=== PATIENT | male | born 1945 | race Caucasian/White ===

== ENCOUNTER 2020-02-10 22:10 | Emergency (ER) | payer MEDICARE, SELFPAY ==
[2020-02-10 22:14] VITALS: BP 188/70; PULSE 62; RESP 18; TEMP 36.2; O2SAT 95; BMI 28.7
--- NOTE | 2020-02-10 22:47 | ED_ITS ---
HPI - Ear Problem General Chief complaint: Ear Problems Stated complaint: foreign object in ear Time Seen by Provider: 02/10/20 22:46 Source: patient Mode of arrival: ambulatory Limitations: no limitations History of Present Illness HPI Narrative: This is a 74-year-old male who presents after having attempted to clean his left ear earwax and the Q-tip broke off inside. Related Data Allergies Allergy/AdvReac Type Severity Reaction Status Date / Time No Known Allergies Allergy Verified 02/10/20 23:10 [No Known Allergies*] Review of Systems Review of Systems: Pertinent positives and negatives as stated in HPI and 10 point review of systems is otherwise negative PMFSH Past Medical History Source: nursing notes reviewed Medical History High cholesterol HTN (hypertension) Myocardial infarction Surgical History History of heart artery stent Social History Social History Advance Directives: No Advance Directives Information Provided: No Physical Exam Vital Signs: Vital Signs: Last Vital Signs Temp 97.1 F 02/10/20 22:14 Pulse 62 02/10/20 22:14 Resp 18 02/10/20 22:14 BP 188/70 H 02/10/20 22:14 Pulse Ox 95 02/10/20 22:14 Body Mass Index 28.7 VITAL SIGNS: Reviewed. GENERAL: Well developed, well nourished, in no acute distress. HEAD: Normocephalic/atraumatic, EYES: PERRLA, EOMI intact without pain, no nystagmus/pallor/icterus noted EARS:Right Ext canals without abnormality, left external canal with obvious remaining portion of the cotton swab lodged within, TMs non-bulging and non- erythematous NOSE: Nares patent bilateral OROPHARYNX: no oral lesions noted, posterior pharynx clear and non-erythematous without noted tonsillar enlargement/erythema/exudates NECK: Supple, no adenopathy LUNGS: Normal breath sounds. No adventitious sounds or accessory muscle use. SpO2<95> CARDIOVASCULAR: Regular rate and rhythm without noted murmurs, no JVD or lower extremity edema. ABDOMEN: Soft, non-tender, non-distended with bowel sounds. No rigidity. No guarding. No palpable masses or hernias noted MUSCULOSKELETAL: No tenderness, deformities, or effusions noted on gross inspection. EXTREMITIES: No cyanosis, clubbing or edema. SKIN: Inspection of the skin reveals no rashes, ulcerations, jaundice, pallor, or petechiae. NEUROLOGIC: Alert and oriented x 4. Strength and sensation to light touch were grossly intact x 4. Course Course Course Narrative: this is a 74-year-old male with history of clinical presentation consistent with foreign body in the left ear which was easily visualized and removed with forceps. Re-evaluation of the ear demonstrates a clear external canal without bleeding and TM is well visualized without evidence compromise. Patient was then discharged in stable condition. Procedures Foreign Body Removal Site: left and ear Description of foreign body: other ( Q 2) Sedation/Analgesia: none Technique: manual removal Confirmed by:: direct visualization Complications: none Post-procedure exam: awake, alert Neurovascular: no change from pre-procedure Discharge Plan Discharge Clinical Impression: Foreign body Patient Disposition: Home, Self-Care Instructions: Ear Foreign Body (ED) Additional Instructions: Resume all home medications as prescribed. Avoid using Q-tips in the future. The patient and/or family acknowledge understanding of results (as applicable), diagnosis, treatment plan, need for follow up, and symptoms that should prompt a return to the emergency room. Referrals: Physician,Unknown [Physician] - 2 days ( re-evaluation after foreign body removal from left ear)
== END 2020-02-10 23:35 | disposition home or self-care (01) ==
LOC: HO.ED 23:23
PROVIDERS: Emergency Provider Student in an Organized Health Care Education/Training Program; PCP Internal Medicine
DX: T16.2XXA Foreign body in left ear, initial encounter (principal); H92.02 Otalgia, left ear; I10 Essential (primary) hypertension; X58.XXXA Exposure to other specified factors, initial encounter; Y93.9 Activity, unspecified; Y92.009 Unspecified place in unspecified non-institutional (private) residence as the place of occurrence of the external cause; Y99.9 Unspecified external cause status; Z79.899 Other long term (current) drug therapy
CPT/HCPCS: 69200; 99283

== ENCOUNTER 2020-03-18 09:02 | Emergency (ER) | payer MEDICARE, SELFPAY ==
[2020-03-18 09:13] VITALS: BP 184/72; PULSE 71; RESP 16; TEMP 36.6; O2SAT 97; BMI 28.7
--- NOTE | 2020-03-18 09:23 | ED_ITS ---
HPI - Skin/Abscess/Foreign Bdy General Chief complaint: Skin/Abscess/Foreign Body Stated complaint: FB ear Time Seen by Provider: 03/18/20 09:15 Source: patient Mode of arrival: ambulatory Limitations: no limitations History of Present Illness HPI narrative: A 70-year-old male presenting to the ED with complaints of part of his hearing aid stuck in his left ear canal. Denies any other complaints or concerns at this time. Related Data Allergies Allergy/AdvReac Type Severity Reaction Status Date / Time No Known Allergies Allergy Verified 02/10/20 23:10 [No Known Allergies*] Review of Systems Review of Systems: ENT/Mouth : No Hearing loss, No Ear Pain Yes all other systems are reviewed and are negative [facility] Past Medical History Attestation statement: The following information was validated with the patient. Medical History High cholesterol HTN (hypertension) Myocardial infarction Pulmonary embolism Surgical History H/O shoulder surgery History of heart artery stent Social History Social History Advance Directives: No Advance Directives Information Provided: No Physical Exam Vital Signs: Vital Signs: Last Vital Signs Temp 97.8 F 03/18/20 09:13 Pulse 71 03/18/20 09:13 Resp 16 03/18/20 09:13 BP 184/72 H 03/18/20 09:13 Pulse Ox 97 03/18/20 09:13 Body Mass Index 28.7 vital signs have been reviewed as normal and appeared to be correct. Blood pressure normal. Heart rate normal. Respiration rate normal. Temperature normal. Oxygen saturation normal. Appearance: Alert. Oriented X3. No acute distress. Head: Normal external exam. Normocephalic. Atraumatic. Eyes: PERRLA. EOMI. Conjunctiva and sclera normal. Eyelids normal. ENT: Right external ear canal within normal limits. Left external ear canal foreign body noted. One foreign body removed the rest of the ear canal within normal limits. TM's Normal. Pharynx normal. Uvula midline. Moist mucous membranes. Neck: Normal inspection. Neck supple. FROM. No adenopathy. No meningeal signs. CVS: Normal heart rate and rhythm. Heart sound normal. No murmurs noted. Pulses normal throughout. Respiratory: No respiratory distress. Painless inspiration. Breath sounds normal. No wheezes/rales/rhonchi noted. Chest nontender. No accessory muscle usage noted or decreased air movement noted. Back: Full range of motion noted. Skin: Skin warm and dry. Normal skin color. Normal skin turgor. No rashes/lesions/lacerations noted. Extremities: Extremities exhibit normal range of motion. Extremities nontender. Neuro: Oriented X 3. No motor deficit. No sensory deficit. Reflexes normal. Course Course Course Narrative: Patient now status post foreign body removal to left ear no complications. Patient tolerated procedure well. Will DC home with instructions to follow up with primary care provider and to return if any new or worsening symptoms. Patient understands agrees the plan. Procedures FB Removal Ear Location: ear canal (L) Foreign Body Suspected: other (Piece of hearing aid) TM intact pre-procedure: unable to visualize Foreign Body Removed: yes Foreign Body Removal Technique: forceps Tympanic Membrane Intact Post Procedure: Yes Patient Tolerated Procedure: well Complications: none MDM - Skin/Abscess/Foreign Bdy Medical Records Attestation: I reviewed the patient's medical records. Discharge Plan Discharge Clinical Impression: Foreign body in left ear lobe Patient Disposition: Home, Self-Care Instructions: Ear Foreign Body (ED) Referrals: Jabier Jaffe MD [Primary Care Provider] - 2 days Print Language: Latvian
== END 2020-03-18 09:40 | disposition home or self-care (01) ==
LOC: HO.ED 09:27
PROVIDERS: Emergency Provider Emergency Medicine; PCP Internal Medicine
DX: T16.2XXA Foreign body in left ear, initial encounter (principal); H92.02 Otalgia, left ear; X58.XXXA Exposure to other specified factors, initial encounter; Y93.9 Activity, unspecified; Y92.9 Unspecified place or not applicable; Y99.9 Unspecified external cause status
CPT/HCPCS: 69200; 99283

== ENCOUNTER 2020-04-01 06:15 | Outpatient (REF) | payer MEDICARE, SELFPAY | END 2020-04-01 06:16 | disposition home or self-care (01) | LOC: HO.LAB 06:15 | PROVIDERS: PCP Internal Medicine; Visit Provider Internal Medicine | DX: Z20.822 Contact with and (suspected) exposure to COVID-19 (principal) | CPT/HCPCS: 36415; C9803; U0003 ==

== ENCOUNTER 2022-02-15 07:06 | Emergency (ER) | payer MEDICARE, SELFPAY ==
[2022-02-15 07:47] VITALS: BP 188/95; PULSE 77; RESP 18; TEMP 36.4; O2SAT 94; BMI 29.4
[2022-02-15 08:11] VITALS: BP 156/74; PULSE 66; RESP 18; TEMP 36.4; O2SAT 93
--- NOTE | 2022-02-15 08:21 | ED.GENADULT ---
HPI - General Adult General Chief complaint: General Medical Stated complaint: Swollen lip Time Seen by Provider: 02/15/22 08:02 Source: patient Mode of arrival: ambulatory Limitations: no limitations History of Present Illness HPI narrative: Patient is a 76 year old assigned male at with a history of HTN presenting to the emergency department today with bottom lip swelling. Patient states that he woke up this morning and had lower lip swelling. Patient states that he does take lisinopril for HTN. Patient denies any dizziness, lightheadedness, abdominal pain, nausea, vomiting, fever, chills, blurry vision, double vision, loss of vision, chest pain, difficulty breathing, shortness of breath, back pain, night sweats, pain with urination, increased urinary frequency, increased urinary urgency, blood in his urine or stool, syncope or a near syncopal episode, recent trauma or falls, bowel incontinence, bladder incontinence, bowel retention, bladder retention, or any other complaints at this time. Onset (ago): hour(s) Location: face and mouth Severity: mild Severity scale (1-10): 5 Pain Consistency: constant Relieving factors: none Exacerbating factors: none Associated symptoms: denies other symptoms Treatments prior to arrival: none Related Data Previous Rx's Medication Instructions Recorded prednisone 20 mg tablet 20 mg PO DAILY 7 days #7 tabs 02/15/22 Allergies Allergy/AdvReac Type Severity Reaction Status Date / Time No Known Allergies Allergy Verified 02/10/20 23:10 [No Known Allergies*] Review of Systems Constitutional: Constitutional: Reports no additional constitutional complaints, Denies chills, Denies fever(s) and Denies night sweats Eyes: Eyes: Reports no additional eye complaints, Denies blurry vision, Denies change in vision, Denies diplopia, Denies eye discharge, Denies loss of vision and Denies eye pain ENT: Denies dizziness Comments: lower lip swelling Cardiovascular: Cardiovascular: Reports no additional cardiovascular complaints, Denies chest pain, Denies lightheadedness, Denies Loss of Consciousness and Denies dyspnea Respiratory: Respiratory: Reports no additional respiratory complaints and Denies dyspnea Gastrointestinal: Gastrointestinal: Reports no additional gastrointestinal complaints, Denies abdominal pain, Denies melena, Denies hematochezia, Denies change in bowel habits and Denies change in stool character Genitourinary: Genitourinary: Reports no additional male genitourinary complaints, Denies hematuria, Denies oliguria, Denies difficulty urinating, Denies dysuria, Denies urinary frequency, Denies urinary hesitancy, Denies urinary incontinence and Denies urinary urgency Musculoskeletal: Musculoskeletal: Reports no additional musculoskeletal complaints, Denies numbness and Denies tingling Neurologic: Denies dizziness, Denies loss of vision, Denies numbness and Denies tingling Psychiatric: Psychiatric: Reports no additional psychiatric complaints Endocrine: Endocrine: Reports no additional endocrine complaints Hematologic/Lymphatic: Hematologic/Lymphatic: Reports no additional hematologic/lymphatic complaints Allergic/Immunologic: Allergic/Immunologic: Reports no additional allergic/immunologic complaints [facility] Past Medical History Attestation statement: The following information was validated with the patient. Source: old records reviewed Medical History High cholesterol HTN (hypertension) Myocardial infarction Pulmonary embolism Surgical History H/O shoulder surgery History of heart artery stent Social History Social History Smoked in Last 30 Days: No Use of substances other than those prescribed or required for medical reasons: No Advance Directives: Yes Advance Directives Information Provided: Yes Advance Directives on File: No Physical Exam ED Vital Signs: Vital Signs - 24 hr 02/15/22 07:47 02/15/22 08:11 02/15/22 10:59 Temperature 97.5 F 97.5 F 98.2 F Pulse Rate 77 66 62 Respiratory Rate 18 18 18 Blood Pressure 188/95 H 156/74 H 184/78 H Pulse Oximetry 94 93 Oxygen Delivery Method Room Air Room Air 02/15/22 11:21 02/15/22 11:55 02/15/22 12:15 Temperature 98.3 F 98.3 F 98.2 F Pulse Rate 68 66 66 Respiratory Rate 19 21 H 28 H Blood Pressure 174/90 H 175/95 H 188/75 H Pulse Oximetry 94 Oxygen Delivery Method Room Air BMI result Body Mass Index 29.4 Const General: cooperative, no acute distress, alert and awake Nutritional Appearance: well nourished Orientation/consciousness: patient oriented x3 Limitations: no limitations HENMT Head: Yes normal to inspection and Yes atraumatic Ears: hearing grossly normal bilaterally and external ears normal General nose exam: Normal external nose present, no nasal discharge noted and no epistaxis Face and sinus: Yes normal facial exam, No abrasion and No laceration Mouth: Normal oral and palatal mucosa present, lip abnormal (lower lip swelling), no drooling and no muffled voice Eyes General: appearance normal, both eyes and all related structures Periorbital: periorbital findings normal Eyelids: Yes eyelids normal Conjunctivae: conjunctivae normal Pupils: Equal, round and reactive pupils present EOM: EOMs intact bilaterally Neck Neck: Yes normal visual inspection, Yes full ROM and Yes no lymphadenopathy Chest Chest palpation & inspection: normal inspection of the chest Resp Effort & Inspection: normal respiratory effort and able to speak in complete sentences GI Inspection: Yes normal to inspection Neuro General: patient oriented x3 and moves all extremities Cranial nerves: Yes Equal, round and reactive pupils present Cognition (Neuro): normal cognition Motor exam (neuro): 5/5 motor strength present throughout Sensory Exam: Normal double simultaneous stimulation for sensation Coordination: [id number] test normal Extrem General: Yes normal to inspection, Yes full ROM and Yes capillary refill normal Psych Appearance: grossly normal Mental Status: mental status grossly normal Affect: normal affect Attitude: cooperative Thought process: Normal thought process present Thought content: Normal thought content present Insight: Good insight present (Psych) Medications Administered Discontinued Medications Generic Name Dose Route Start Last Admin Trade Name Joeq PRN Reason Stop Dose Admin Diphenhydramine HCl 50 mg 02/15/22 08:19 02/15/22 08:55 Diphenhydramine Hcl 50 Mg/Ml Vial IVPUSH 02/15/22 08:20 50 mg ONCE ONE Administration Epinephrine 0.3 mg 02/15/22 08:19 02/15/22 08:51 Epinephrine 1 Mg/Ml Vial IM 02/15/22 08:20 0.3 mg STAT STA Administration Methylprednisolone Sodium Succinate 60 mg 02/15/22 08:19 02/15/22 08:52 Methylprednisolone Sod Succ 125 Mg/2 Ml Vial IVPUSH 02/15/22 08:20 60 mg ONCE ONE Administration Medical Decision Making Medical Decision Making MDM Narrative: Patient is a 76 year old assigned male at with a history of HTN presenting to the emergency department today with swelling of the lower lip. Patient's physical exam showed swelling to the lower lip but the patient's airway was intact, no drooling, no muffeled voice, patient was able to tolerate his own secretions. Patient's blood work was unremarkable. I explained my physical exam findings as well as all test results to the patient. I answered all questions asked by the patient. Patient received IV Benadryl, IV Solu-medrol, and IV fresh frozen plasma which he stated helped his symptoms significantly. I stressed the importance of the patient taking his medication as prescribed and to stop his lisinopril. I stressed the importance of the patient following up with his primary care provider. I stressed the importance of the patient returning to the emergency department immediately if his symptoms were to worsen or if he were to develop any dizziness, shortness of breath, difficulty breathing, chest pain, blurry vision, loss of vision, nausea, vomiting, abdominal pain, fever, chills, back pain, or any other complaints. Patient verbalized agreement and understanding with this treatment plan and discharge. Differential Diagnoses: Differential diagnosis (angioedema secondary to lisinopril use) Differential Diagnosis: The differential diagnosis associated with the patient?s presentation includes: Discussion of management with other physician/healthcare provider/other source (e.g., hospitalist, medical cost consultant, behavioral health): Discussion w/other physician/healthcare provider I discussed my management of this patient with my attending physician Dr. Ivy who agreed with my management and discharge of this patient. Critical Care Time Critical Care Time Critical Care Time: Yes Total Critical Care Time: 30 Attestation: I spent 30 minutes of Critical Care Time with this patient. This does not include time spent on separately reported billable procedures. Discharge Plan Discharge Clinical Impression: Angioedema of lips Patient Disposition: Home, Self-Care Additional Instructions: STOP TAKING THE LISINOPRIL. IF YOU HAVE ANY INCREASE IN SWELLING PLEASE RETURN TO THE ED IMMEDIATELY. Follow up with your primary care provider. Return to the emergency department immediately if your symptoms worsen or if you develop any dizziness, shortness of breath, difficulty breathing, chest pain, blurry vision, loss of vision, nausea, vomiting, abdominal pain, fever, chills, back pain, or any other complaints. Prescriptions: New prednisone 20 mg tablet 20 mg PO DAILY 7 Days Qty: 7 0RF Referrals: Jabier Jaffe MD [Primary Care Provider] - Print Language: Bermudian
[2022-02-15 08:44] LABS: MANUAL DIFF FLAG NO
[2022-02-15 08:48] LABS: Basophils Percent Auto 0.3 % (0-2); Eosinophils Percent Auto 0.1 % (0-4); Hematocrit 44.9 % (42.0-52.0); Hemoglobin 15.5 g/dl (14.0-18.0); Imm Gran Abs Auto 0.05 X10*3/uL (0.00-0.03); Imm Gran Pct Auto 0.7 % (0.0-0.4); Lymphocytes Percent Auto 14.2 % (20-40); Mean Corpuscular HGB Conc 34.5 g/dl (31.0-36.0); Mean Corpuscular Hemoglobin 32.1 pg (27.0-33.0); Mean Platelet Volume 9.9 fL (9.4-12.4); Monocytes Absolute Auto 0.4 X10*3/uL (0.1-1.2); Monocytes Percent Auto 6.1 % (2-11); Neutrophils Absolute Auto 5.4 x10*3/uL (2.0-8.3); Neutrophils Percent Auto 78.6 % (45-73); Platelet Count 230 X10*3/uL (160-400); Red Blood Count 4.83 X10*6/uL (4.60-5.80); Red Cell Distribution Width 14.1 % (11.0-16.0); White Blood Count 6.9 X10*3/uL (4.8-10.8)
[2022-02-15] MEDS: EPINEPHrine 1 MG/ML VIAL 0.3 MG IM (08:51)
[2022-02-15] MEDS: methylPREDNISolone Sod Succ 125 MG/2 ML VIAL 60 MG IVPUSH (08:52)
[2022-02-15] MEDS: diphenhydrAMINE HCL 50 MG/ML VIAL IVPUSH (08:55)
[2022-02-15 08:56] LABS: INTERNATIONAL NORM RATIO 1.1 (0.9-1.1); Prothrombin Time 13.2 SEC (10.0-13.1)
[2022-02-15 08:58] LABS: Partial Thromboplastin Time 27.2 SEC (26.0-36.4)
[2022-02-15 09:02] LABS: Alanine Aminotransferase 14 U/L (0-40); Albumin Level 3.3 g/dL (3.5-5.0); Alkaline Phosphatase 68 U/L (39-117); Anion Gap 12 (12-20); Aspartate Amino Transferase 12 U/L (5-37); Bilirubin Total 1.5 mg/dL (0.0-1.0); Blood Urea Nitrogen 15 mg/dL (9-16); Calcium 8.2 mg/dL (8.4-10.2); Carbon Dioxide 23 mmol/L (22-29); Chloride 108 mmol/L (96-108); Creatinine Clr Calc Pharmacy 95.9; Estimated Glomerular Filt Rate > 60; Glucose Random 114 mg/dL (60-115); Potassium 4.6 mmol/L (3.3-5.1); Sodium 138 mmol/L (135-145); Total Protein 6.1 g/dL (6.5-8.0)
[2022-02-15 10:59] VITALS: BP 184/78; PULSE 62; RESP 18; TEMP 36.8
[2022-02-15 11:21] VITALS: BP 174/90; PULSE 68; RESP 19; TEMP 36.8
[2022-02-15 11:55] VITALS: BP 175/95; PULSE 66; RESP 21; TEMP 36.8
[2022-02-15 12:15] VITALS: BP 188/75; PULSE 66; RESP 28; TEMP 36.8; O2SAT 94
== END 2022-02-15 13:06 | disposition home or self-care (01) ==
PROVIDERS: Physician Assistant Medical; Emergency Provider Emergency Medicine; PCP Internal Medicine
DX: K13.0 Diseases of lips (principal); I10 Essential (primary) hypertension; Z79.899 Other long term (current) drug therapy
CPT/HCPCS: 36415; 36430; 80053; 85025; 85610; 85730; 86850; 86900; 86901; 96372; 96374; 96375; 99284; 99285; J0171; J1200; J2930; P9017

== ENCOUNTER 2022-03-15 08:34 | Emergency (ER) | payer MEDICARE, SELFPAY ==
--- NOTE | ~2022-03-15 | CT_ITS ---
EXAMINATION: CT CHEST AND CT ABDOMEN PELVIS WITHOUT IV CONTRAST. CLINICAL INFORMATION: Fall, right rib pain. COMPARISON: Chest x-ray performed earlier today and CT chest 09/11/2014 TECHNIQUE: 5 mm thin axial and reformatted 3 mm thin sagittal and coronal images of chest, abdomen and pelvis were obtained without contrast. DLP [id number]. This CT examination was performed using dose optimization technique as appropriate, variously including the following: Automated exposure control Adjustment of MA and/or KV according to patient size(this includes techniques or standardized protocols for targeted exams where dose is matched to indication/reason for exam; extremities or head. Use of iterative reconstruction techniques. FINDINGS: Chest: LUNGS: The lungs are well-expanded and clear of acute pneumonic process. There are no pulmonary nodules, mass or consolidation. There is patchy airspace opacity in the dependent segments of both lung bases likely infiltrate and/or atelectasis. Pleura: There is no pleural effusion, thickening or pneumothorax. Mediastinum: The thyroid lobes are asymmetrical with the right slightly larger than left. Central trachea and the bronchi are widely patent. The heart size and great vessels are normal caliber. Small shotty pretracheal and paratracheal lymph nodes seen which appear benign in appearance. The measure 5 mm in the maximum dimension.. No pericardial effusion. Coronary artery: Moderate coronary artery calcifications are seen. Axilla: There are small shotty benign-appearing lymph nodes in the axilla. The chest wall is unremarkable. Osseous structures: Mild degenerative changes bilateral glenohumeral joint. No aggressive lytic or sclerotic process seen. Moderate spondylosis in mid and lower dorsal spine. Abdomen and pelvis: Liver, ducts and gallbladder: The liver is normal size, contour and density. No focal lesion or intrahepatic ductal dilatation seen. The gallbladder appears unremarkable. Spleen: Unremarkable. Pancreas: Unremarkable. Adrenal glands: Unremarkable. Kidneys and ureters: The left kidney slightly smaller measuring 8.4 to 6 cm in the right kidney measures 10.85 cm. There are no radiopaque renal calculi or hydronephrosis. There is mild bilateral perinephric stranding. The ureters are nondilated. Bladder: There is mild dilation of bladder. GI tract: There is diffuse scattered diverticula and stool throughout the colon without distention or diverticulitis. The small bowel loops are normal caliber. Appendix is normal caliber. Lymphovascular structures: The abdominal aorta is of normal caliber except for mild sclerosis. There is an infrarenal IVC filter at L2 vertebra. Of No abnormal size retroperitoneal lymph nodes seen. Abdominal wall: Unremarkable. Pelvis: The prostate gland is mildly enlarged with central gland calcification. No free fluid or free air seen. Osseous structures: No aggressive lytic or sclerotic process seen. CT/CT abdomen pelvis wo IV con IMPRESSION: Diffuse colonic diverticulosis without diverticulitis. Asymmetric kidneys with the right kidney slightly larger compared to left. No radiopaque urolith or hydroureteronephrosis. There is bilateral perinephric stranding. Mild prostate enlargement. Bibasilar dependent infiltrates/atelectasis. No visible rib fracture seen.
--- NOTE | ~2022-03-15 | XR_ITS ---
EXAMINATION: XR RIBS, RIGHT CLINICAL INFORMATION: Fall. COMPARISON: Chest 03/17/2018 TECHNIQUE: 3 views of the right ribs were obtained. FINDINGS: The lungs are well-expanded and clear of acute process. The heart size and pulmonary vascularity is normal. Multiple views of right ribs reveal no visible fracture or bony abnormality. The soft tissues are normal. XR/XR ribs RT min 3V w CXR1V IMPRESSION: 1. Unremarkable chest exam. 2. Unremarkable right rib exam.
[2022-03-15 09:07] VITALS: BP 199/90; PULSE 69; RESP 20; TEMP 36.3; O2SAT 97; BMI 30.1
--- NOTE | 2022-03-15 11:13 | ED.FALL ---
HPI - Fall General Chief Complaint: Fall Stated Complaint: FAll T-1/Rib pain Time Seen by Provider: 03/15/22 10:52 Source: patient Mode of arrival: ambulatory Limitations: no limitations History of Present Illness HPI Narrative: 76 yo male with PMH of CAD s/p stent, PE, HTN, HLD on aspirin and plavix notes he was helping a friend yesterday and fell forward striking a hard elevated piece of ramp - struck R anterior chest and RUQ since then hurts to lay on that side and touch that side. No diff breathing, no n/v/d or dizziness. Did not strike head and had no neck pain MD complaint: fall Onset (ago): day(s) (yesterday) Fall from: standing Fall witnessed: no Place fall occurred: other (outside) Loss of consciousness: none Prolonged down time: no Symptoms prior to fall: none Context: tripped/slipped Location of injury: chest and abdomen Severity: moderate Quality: dull and aching Associated symptoms (after fall): other (pain in that area) Related Data Previous Rx's Medication Instructions Recorded prednisone 20 mg tablet 20 mg PO DAILY 7 days #7 tabs 02/15/22 lidocaine 5 % topical patch 1 patch topical DAILY #30 ea 03/15/22 Allergies Allergy/AdvReac Type Severity Reaction Status Date / Time No Known Allergies Allergy Verified 02/10/20 23:10 [No Known Allergies*] Review of Systems Review of Systems: Constitutional : No Weight loss, No Fever, No Chills ENT/Mouth : No sore throat, No Rhinorrhea Eyes: No Eye Pain, No Swelling Cardiovascular : pos Chest Pain, no SOB, no Dyspnea on Exertion, No Orthopnea, No Edema, No Palpitations Respiratory : No Cough, No Sputum Gastrointestinal : no Nausea, No Vomiting, No Diarrhea, pos abdominal Pain, No Hematochezia, No Melena Genitourinary : No Dysuria, No Urinary Frequency Musculoskeletal : No joint pain, No Myalgias, No Joint Swelling Skin : No Skin Lesions, No rash Neuro : No Weakness, No Numbness, No Dizziness, No Headache Psych : No Anxiety/Panic, No Depression Heme/Lymph: No Bruising, No Lymphadenopathy Endocrine : No Polyuria, No Polydipsia All other systems reviewed and are negative PMFSH Past Medical History Attestation statement: The following information was validated with the patient. Medical History High cholesterol HTN (hypertension) Myocardial infarction Pulmonary embolism Surgical History H/O shoulder surgery History of heart artery stent Social History Social History (Updated 03/15/22 @ 11:32 by Hannah Madrigal DO) Patient Tobacco Use Status: Never used Tobacco Advance Directives: Yes Advance Directives Information Provided: Yes Advance Directives on File: No Physical Exam Vital Signs: Vital Signs: Last Vital Signs Temp 99.8 F 03/15/22 11:37 Pulse 70 03/15/22 11:37 Resp 22 H 03/15/22 11:37 BP 210/92 H 03/15/22 11:37 Pulse Ox 98 03/15/22 11:37 O2 Del Method 03/15/22 11:37 BMI result Body Mass Index 30.1 Appearance: Alert. Oriented X3. No acute distress. Eyes: Pupils equal, round and reactive to light. ENT: Pharynx normal. Neck: Normal inspection. Neck supple. CVS: Normal heart rate and rhythm. Pulses normal. Respiratory: No respiratory distress. Breath sounds normal. ttp along R lower anterior ribs Abdomen: Soft and mild RUQ ttp no rebound or guarding Skin: Skin warm and dry. Normal skin color. Normal skin turgor. Extremities: No lower extremity edema. No calf ttp Neuro: Oriented X 3. No motor deficit. No sensory deficit. Course Course Course Narrative: CT scan atelectasis denies resp issues, denies a new cough no fevers, no hypoxia, temp 99.8 will obtain COVID swab, no traumatic injuries noted cough a few weeks ago but he notes it is getting better at this time clinically not consistent with pneumonia Medical Decision Making Medical Decision Making MDM Narrative: 76 yo male with PMH of CAD s/p stent, PE, HTN, HLD on aspirin and plavix here with c/o RUQ and R rib pain s/p mechanical fall no head or neck pain no injury reported - at this time xrays negative will need CT scan of chest and abdomen to evaluate for rib fracture but also liver injury I doubt bowel injury given lack of diffuse abdominal pain. Stable VS. I have reviewed and interpreted the patient's labs and reviewed and interpreted radiologist readings of studies done in ED today. Differential Diagnosis Differential Diagnoses: The differential diagnosis associated with the presentation includes rib fracture, liver injury, rib contusion, abdominal muscle wall strain Lab Data MDM Lab Attestation statement: I reviewed the patient's lab results. Labs: Lab Results 03/15/22 Range/Units 12:50 COVID-19 ([facility]) Negative (Negative) COVID-19 Clin Com See Note Independent Interpretation I performed an independent interpretation of an: Plain X-Ray and CT Scan Radiology Impression Discussion of test interpretation with radiology: I have reviewed the radiologist's reading. External Record Review External record reviewed: Prior outpatient labs Tests considered The following testing was considered but not selected: labs given stable VS and no tachycardia on exam Prescription Management I considered prescription management with: Pain Medication and Other (lidocaine patch) Chronic Conditions Patient?s care impacted by: Other (use of aspirin and plavix - needs CT scans) Discharge Plan Discharge Clinical Impression: Rib contusion Qualifiers: Encounter type: initial encounter Laterality: right Qualified Code(s): S20.211A - Contusion of right front wall of thorax, initial encounter Patient Disposition: Home, Self-Care Instructions: Rib Contusion (ED) Additional Instructions: return to ED for any worsening symptoms or concerns return for fevers, productive cough, vomiting, severe chest pain COVID test negative Prescriptions: New lidocaine 5 % adhesive patch,medicated 1 patch topical DAILY Qty: 30 0RF Rx Instructions: leave on most painful area for up to 12 hrs No Action prednisone 20 mg tablet 20 mg PO DAILY 7 Days Qty: 7 0RF Interventions: ED Discharge Assessment Last Done: 03/15/22 13:42 Discharge Date/Time: 03/15/22 13:43
[2022-03-15 11:37] VITALS: BP 210/92; PULSE 70; RESP 22; TEMP 37.7; O2SAT 98
[2022-03-15 13:24] LABS: COVID-19 Test Negative (Negative); IDNOW Serial# 55D5AD1C
== END 2022-03-15 13:43 | disposition home or self-care (01) ==
PROVIDERS: Emergency Provider Emergency Medicine; PCP Internal Medicine
DX: S20.211A Contusion of right front wall of thorax, initial encounter (principal); W22.8XXA Striking against or struck by other objects, initial encounter; I10 Essential (primary) hypertension; E78.5 Hyperlipidemia, unspecified; Z86.711 Personal history of pulmonary embolism; Z20.822 Contact with and (suspected) exposure to COVID-19; Y93.89 Activity, other specified; Y92.414 Local residential or business street as the place of occurrence of the external cause; Y99.9 Unspecified external cause status; Z79.82 Long term (current) use of aspirin; Z79.01 Long term (current) use of anticoagulants
CPT/HCPCS: 71101; 71250; 74176; 87635; 99283; 99284

== ENCOUNTER 2023-03-26 03:32 | Emergency (ER) | payer MEDICARE, SELFPAY ==
--- NOTE | 2023-03-26 | ECG_ITS ---
Test Reason : HIGH BP/CHEST WALL PAIN Blood Pressure : / mmHG Vent. Rate : 068 BPM Atrial Rate : 068 BPM P-R Int : 160 ms QRS Dur : 102 ms QT Int : 416 ms P-R-T Axes : 039 -39 004 degrees QTc Int : 442 ms Sinus rhythm with Premature atrial complexes Left axis deviation Inferior infarct , age undetermined Abnormal ECG When compared with ECG of 14-MAY-2002 15:34, Premature atrial complexes are now Present Inferior infarct is now Present Nonspecific T wave abnormality, worse in Inferior leads Nonspecific T wave abnormality now evident in Anterolateral leads Referred By: Generic ED Physician Electronically Signed By:MARY JO MELVIN MD
--- NOTE | ~2023-03-26 | CT_ITS ---
EXAMINATION: CT CHEST WITHOUT CONTRAST CLINICAL INFORMATION: Pain in the right right side to the ribs and cough, evaluate for fracture or pneumonia COMPARISON: 03/15/2022 TECHNIQUE: Multidetector volumetric CT imaging of the chest was done. Axial MIP volume rendering provided. Sagittal and coronal reformatted images were obtained. This CT examination was performed using dose optimization techniques as appropriate, variously including the following: *Automated exposure control *Adjustment of mA and/or kV according to patient size (this includes techniques or standardized protocols for targeted exams where dose is matched to indication/reason for exam; i.e. extremities or head) *Use of iterative reconstruction technique DLP: 460 mGy-cm FINDINGS: SHODER FILLER: Unremarkable LUNGS: In comparison to the previous examination of 03/15/2022 there is newly developed right lower lobe airspace disease abating posterior chest wall and consistent with pneumonia. In addition bibasilar atelectasis present. There are no lung nodules. Central airways are patent. MEDIASTINUM: There is no mediastinal or hilar lymphadenopathy. The aorta is not dilated but calcified. Coronary artery calcifications present. CORONARY ARTERY CALCIFICATION: Coronary artery calcifications present. AXILLA: No lymphadenopathy. UPPER ABDOMEN: There is mild hiatal hernia. Visualized liver, gallbladder, stomach, spleen, pancreas, adrenal glands are unremarkable. The partially seen kidneys are normal. There is IVC filter present. Abdominal aorta is calcified but not dilated. OSSEOUS STRUCTURES: Unremarkable, specifically there are no rib fractures seen on the right. CT/CT chest wo IV con IMPRESSION: Right lower lobe pneumonia. Fleischner guidelines were followed.
--- NOTE | ~2023-03-26 | XR_ITS ---
EXAMINATION: XR CHEST, 2 VIEWS CLINICAL INFORMATION: Chest wall/rib pain. COMPARISON: 03/15/2022 TECHNIQUE: PA and lateral views of the chest were obtained. FINDINGS: Linear bibasilar opacities are favored to correspond to atelectasis. Superimposed dependent consolidation is possible, though not favored. No pneumothorax or pleural effusion. Cardiac and mediastinal contours are normal. Pulmonary vasculature is unremarkable. Trachea is midline. Mild degenerative disc disease in the thoracic spine. Chronic changes of prior right distal clavicular resection. XR/XR chest 2V IMPRESSION: Linear bibasilar opacities are favored to correspond to atelectasis. No acute pulmonary findings.
[2023-03-26 03:35] VITALS: BP 230/80; PULSE 64; RESP 18; TEMP 36.3; O2SAT 93; BMI 30.1
[2023-03-26 03:54] VITALS: BP 232/100; PULSE 70
[2023-03-26 04:07] LABS: MANUAL DIFF FLAG NO
[2023-03-26 04:08] LABS: Basophils Absolute Auto 0.1 X10*3/uL (0.0-0.2); Basophils Percent Auto 0.7 % (0-2); Eosinophils Absolute Auto 0.1 X10*3/uL (0.0-0.4); Eosinophils Percent Auto 1.3 % (0-4); Hematocrit 44.1 % (42.0-52.0); Hemoglobin 14.7 g/dl (14.0-18.0); Imm Gran Abs Auto 0.03 X10*3/uL (0.00-0.03); Imm Gran Pct Auto 0.3 % (0.0-0.4); Lymphocytes Absolute Auto 1.6 X10*3/uL (1.2-4.9); Lymphocytes Percent Auto 14.5 % (20-40); Mean Corpuscular HGB Conc 33.3 g/dl (31.0-36.0); Mean Corpuscular Hemoglobin 32.2 pg (27.0-33.0); Mean Corpuscular Volume 96.7 fL (80.0-98.0); Mean Platelet Volume 9.2 fL (9.4-12.4); Monocytes Absolute Auto 1.1 X10*3/uL (0.1-1.2); Monocytes Percent Auto 9.6 % (2-11); Neutrophils Absolute Auto 8.1 x10*3/uL (2.0-8.3); Neutrophils Percent Auto 73.6 % (45-73); Platelet Count 195 X10*3/uL (160-400); Red Blood Count 4.56 X10*6/uL (4.60-5.80); Red Cell Distribution Width 13.2 % (11.0-16.0); White Blood Count 10.9 X10*3/uL (4.8-10.8)
[2023-03-26 04:27] LABS: Alanine Aminotransferase 16 U/L (0-40); Albumin Level 3.9 g/dL (3.5-5.0); Alkaline Phosphatase 95 U/L (39-117); Anion Gap 13 (12-20); Aspartate Amino Transferase 15 U/L (5-37); Bilirubin Total 0.5 mg/dL (0.0-1.0); Blood Urea Nitrogen 19 mg/dL (9-16); Carbon Dioxide 22 mmol/L (22-29); Chloride 107 mmol/L (96-108); Creatinine Clr Calc Pharmacy 67.6; Estimated Glomerular Filt Rate > 60; Glucose Random 123 mg/dL (60-115); Potassium 4.2 mmol/L (3.3-5.1); Sodium 138 mmol/L (135-145); Total Protein 7.3 g/dL (6.5-8.0)
[2023-03-26 04:29] LABS: Troponin-I High Sensitivity 3.3 ng/L (<3.5-35.0)
[2023-03-26 04:30] VITALS: BP 186/78; PULSE 65; O2SAT 98
--- NOTE | 2023-03-26 06:52 | ED_ITS ---
HPI - General Adult General Chief complaint: General Medical Stated complaint: fall Time Seen by Provider: 03/26/23 06:39 Source: patient Mode of arrival: ambulatory Limitations: no limitations History of Present Illness HPI narrative: Patient ia a 77 yr old male with a history of CAD, PE following traumatic fall, CO in 2019 with stent placement, HTN, HLD, status post fall presenting with right chest wall/rib pain since last night. On Monday, patient tripped, fell and landed on his knees and hands in a parking lot. Patient reports he tripped. Denies LOC, head strike, or dizziness at time of fall not on thinners. He was able to stand after the fall with assistance without any symptoms. Patient felt okay up until last night when he developed sudden rib pain with coughing and some sob. The pain comes and goes with it being a 9/10 at its worse. Pain does occur at rest and lasts less than 10 seconds. Patient denies fever, chills, SOB, chest pain, recent sick contacts. Related Data Previous Rx's Medication Instructions Recorded prednisone 20 mg tablet 20 mg PO DAILY 7 days #7 tabs 02/15/22 lidocaine 5 % topical patch 1 patch topical DAILY #30 ea 03/15/22 albuterol sulfate 90 mcg/actuation 2 inh inhalation Q4-6H PRN 03/26/23 breath activated powder inhaler shortness of breath or wheezing #1 ea azithromycin 250 mg tablet See Rx Instructions PO .COMPLEX #6 03/26/23 tabs doxycycline hyclate 100 mg capsule 100 mg PO BID 10 days #20 caps 03/26/23 prednisone 20 mg tablet 40 mg (2 x 20 mg) PO DAILY 5 days 03/26/23 #10 tabs Allergies Allergy/AdvReac Type Severity Reaction Status Date / Time No Known Allergies Allergy Verified 03/26/23 03:34 [No Known Allergies*] Review of Systems 2 Review of Systems: Constitutional : No Weight loss, No Fever, No Chills, No Fatigue, No Malaise ENT/Mouth : No sore throat, No Rhinorrhea Eyes: No Eye Pain, No Swelling, No Redness Cardiovascular : No Chest Pain, No SOB, No Dyspnea on Exertion, No Orthopnea, No Edema, No Palpitations Respiratory : No Cough, No Sputum, No Wheezing Gastrointestinal : No Nausea, No Vomiting, No Diarrhea, No Constipation, No abdominal Pain, No Hematochezia, No Melena Genitourinary : No Dysuria, No Urinary Frequency, No Hematuria, Musculoskeletal : + Right lateral rib pain. No joint pain, No Myalgias, No Joint Swelling Skin : No Skin Lesions, No rash Neuro : No Weakness, No Numbness, No Dizziness, No Headache Psych : No Anxiety/Panic, No Depression Heme/Lymph: No Bruising, No Bleeding,No Lymphadenopathy Endocrine : No Polyuria, No Polydipsia All other systems reviewed and are negative Yes all other systems are reviewed and are negative [facility] Past Medical History Attestation statement: The following information was validated with the patient. Source: old records reviewed and nursing notes reviewed Onset Date is defined in the Problem List Problems that require an onset date and time if occurred within 24 hrs of arrival to the ED Aortic Dissection and Rupture; Neurologic impairment; Cardiopulmonary Arrest; Endotracheal Intubation; Insertion or Replacement of Mechanical Circulatory Assist Device Medical History High cholesterol HTN (hypertension) Myocardial infarction Pulmonary embolism Surgical History H/O shoulder surgery History of heart artery stent Social History Social History (Updated 03/15/22 @ 11:32 by Hannah Madrigal DO) Patient Tobacco Use Status: Never used Tobacco Advance Directives: No Advance Directives Information Provided: No Physical Exam ED Vital Signs: Vital Signs - 24 hr 03/26/23 03:35 03/26/23 03:54 03/26/23 04:30 Temperature 97.4 F Pulse Rate 64 70 65 Respiratory Rate 18 Blood Pressure 230/80 H 232/100 H 186/78 H Pulse Oximetry 93 98 Oxygen Delivery Method Room Air Room Air Room Air Oxygen Flow Rate 95 03/26/23 10:24 03/26/23 11:16 Temperature 98.2 F Pulse Rate 64 Respiratory Rate 20 Blood Pressure 178/71 H Pulse Oximetry 88 L 92 Oxygen Delivery Method Room Air Room Air Oxygen Flow Rate BMI result Body Mass Index 30.1 vss for hypertension at 186/78 Appearance: Alert.? Oriented X3.? No acute distress.? Head: Normocephalic, atraumatic, no step-offs or deformities Eyes: Pupils equal, round and reactive to light.? ENT: Pharynx normal.??External ears normal, TMs normal bilaterally and EAC's normal. No pain with manipulation of external ears bilaterally. No mastoid tenderness. Neck: Normal inspection.? Neck supple.? CVS: Normal heart rate and rhythm.? Pulses normal.?No pain to palpation of the anterior and lateral chest bilaterally. No step offs. Respiratory: No respiratory distress.? Breath sounds + crackles to RLL.? Abdomen: Soft and nontender.? Skin: Skin warm and dry.? Normal skin color.? Normal skin turgor.? Extremities: No lower extremity edema.? No calf ttp. 5/5 strength to bilateral upper and lower extremities Back: No midline tenderness, no C-spine tenderness, full range of motion, no CVA tenderness bilaterally Neuro: Oriented X 3.? No motor deficit.? No sensory deficit. CN 2-12 intact Course Reevaluation(s) Reevaluation #1: CBC with slight leukocytosis. Chemistry with no acute electrolyte abnormalities requiring intervention however patient's BUN and creatinine is noted to be slightly higher than his baseline will hydrate with IV fluids. Troponin negative, EKG nonischemic. Patient's chest x-ray with linear bibasilar opacities likely atelectasis based off of x-ray however on exam patient does have crackles I am concerned for a probable right middle lobe pneumonia CT ordered to rule this out. Time: 09:11 Reevaluation #2: Patient was ambulated around the department he was 88-89% at its lowest w/ labored breathing. IV atbx ordered i do have high suspicion for pNA. Time: 10:24 Reevaluation #3: Patient's CT of the chest showing right lower lobe pneumonia. I had a long conversation with patient because I told him I would like him to be admitted due to his hypoxia, infection, labs with a white count. Patient is adamant he does not want to stay in the hospital. Nursing also tried to talk the patient into staying however he is refusing. He is alert and oriented times foreign verbalizes risks of leaving against medical advice. He will sign out against medical advice I asked him to please return if he changes his mind. Time: 11:25 Medications Administered Discontinued Medications Generic Name Dose Route Start Last Admin Trade Name Freq PRN Reason Stop Dose Admin Acetaminophen 975 mg 03/26/23 07:59 03/26/23 09:32 Acetaminophen 325 Mg Tablet PO 03/26/23 08:00 975 mg ONCE ONE Administration Atorvastatin Calcium 80 mg 03/26/23 08:00 03/26/23 09:32 Atorvastatin Calcium 80 Mg Tablet PO 03/26/23 08:01 80 mg ONCE ONE Administration Carvedilol 12.5 mg 03/26/23 07:59 03/26/23 09:32 Carvedilol 12.5 Mg Tablet PO 03/26/23 08:00 12.5 mg ONCE ONE Administration Protocol Losartan Potassium 100 mg 03/26/23 07:59 03/26/23 09:32 Losartan Potassium 50 Mg Tablet PO 03/26/23 08:00 100 mg ONCE ONE Administration Protocol Medical Decision Making Medical Decision Making [facility] Narrative: Patient ia a 77 yr old male with a history of CAD, PE following traumatic fall, CO in 2019 with stent placement, HTN, HLD, status post fall presenting with right chest wall/rib pain since last night. PE significant for RLL crackles. Patient had episode of sharp pain over the right anterior chest during examination while lying in bed, lasting less than 10 seconds. Likely rib fracture vs intercostal muscle strain vs chostochondritis vs pneumonia. Unlikely CO, stroke, PE, pneumothroax, pericarditis. Unlikely metabolic derangements, dissection Plan labs, imaging, EKG Differential Diagnosis Differential Diagnoses: The differential diagnosis associated with the presentation includes Likely rib fracture vs intercostal muscle strain vs chostochondritis vs pneumonia. Unlikely CO, stroke, PE, pneumothroax, pericarditis. Unlikely metabolic derangements, dissection Admission/Observation Consideration of admission/observation: Escalation of care including admission/observation considered Lab Data [facility] Lab Attestation statement: I reviewed the patient's lab results. CBC significant for leukocytosis 10.9. Most likely due to stress response. RBC low, but at baseline. CMP unremarkable from baseline. Trop 3.3 03/26/23 04:03 03/26/23 04:03 Labs: Lab Results 03/26/23 03/26/23 Range/Units 04:03 09:24 WBC 10.9 H (4.8-10.8) X10*3/uL RBC 4.56 L (4.60-5.80) X10*6/uL Hgb 14.7 (14.0-18.0) g/dl Hct 44.1 (42.0-52.0) % MCV 96.7 (80.0-98.0) fL MCH 32.2 (27.0-33.0) pg MCHC 33.3 (31.0-36.0) g/dl RDW 13.2 (11.0-16.0) % Plt Count 195 (160-400) X10*3/uL MPV 9.2 L (9.4-12.4) fL Immature Gran % (Auto) 0.3 (0.0-0.4) % Neut % (Auto) 73.6 H (45-73) % Lymph % (Auto) 14.5 L (20-40) % [place] % (Auto) 9.6 (2-11) % Eos % (Auto) 1.3 (0-4) % Baso % (Auto) 0.7 (0-2) % Lymph # (Auto) 1.6 (1.2-4.9) X10*3/uL [place] # (Auto) 1.1 (0.1-1.2) X10*3/uL Eos # (Auto) 0.1 (0.0-0.4) X10*3/uL Baso # (Auto) 0.1 (0.0-0.2) X10*3/uL Abs Immat Gran (auto) 0.03 (0.00-0.03) X10*3/uL Absolute Neuts (auto) 8.1 (2.0-8.3) x10*3/uL Absolute Nucleated RBC 0.000 (0.0-0.012) X10*3/uL Nucleated RBC % (auto) 0.0 (0.0-0.2) /100WBC Sodium 138 (135-145) mmol/L Potassium 4.2 (3.3-5.1) mmol/L Chloride 107 (96-108) mmol/L Carbon Dioxide 22 (22-29) mmol/L Anion Gap 13 (12-20) BUN 19 H (9-16) mg/dL Creatinine 1.06 (0.5-1.4) mg/dL Estim Creat Clear Calc 67.6 Estimated GFR > 60 Random Glucose 123 H (60-115) mg/dL Lactic Acid 1.2 (0.5-2.0) mmol/L Calcium 9.0 D (8.4-10.2) mg/dL Total Bilirubin 0.5 (0.0-1.0) mg/dL AST 15 (5-37) U/L ALT 16 (0-40) U/L Alkaline Phosphatase 95 (39-117) U/L Troponin I High Sens 3.3 (<3.5-35.0) ng/L Total Protein 7.3 (6.5-8.0) g/dL Albumin 3.9 (3.5-5.0) g/dL Independent Interpretation I performed an independent interpretation of an: EKG (Vent. Rate : 068 BPM Atrial Rate : 068 BPM P-R Int : 160 ms QRS Dur : 102 ms QT Int : 416 ms P-R-T Axes : 039 -39 004 degrees QTc Int : 442 ms Sinus rhythm with Premature atrial complexes Left axis deviation Inferior infarct , age undetermined Abnormal ECG When compare), Plain X-Ray (XR/XR chest 2V IMPRESSION: Linear bibasilar opacities are favored to correspond to atelectasis. No acute pulmonary findings.) and CT Scan (CT/CT chest wo IV con IMPRESSION: Right lower lobe pneumonia. ) Radiology Impression Discussion of test interpretation with radiology: I have reviewed the radiologist's reading. Radiologist Impression: XR/XR chest 2V IMPRESSION: Linear bibasilar opacities are favored to correspond to atelectasis. No acute pulmonary findings. CT/CT chest wo IV con IMPRESSION: Right lower lobe pneumonia. Vent. Rate : 068 BPM Atrial Rate : 068 BPM P-R Int : 160 ms QRS Dur : 102 ms QT Int : 416 ms P-R-T Axes : 039 -39 004 degrees QTc Int : 442 ms Sinus rhythm with Premature atrial complexes Left axis deviation Inferior infarct , age undetermined Abnormal ECG When compared with ECG of 14-MAY-2002 15:34, Premature atrial complexes are now Present Inferior infarct is now Present Nonspecific T wave abnormality, worse in Inferior leads Nonspecific T wave abnormality now evident in Anterolateral leads External Record Review External record reviewed: Inpatient record, Outpatient record and Prior outpatient radiology Chronic Conditions Patient?s care impacted by: Hypertension Critical Care Time Critical Care Time Critical Care Time: Yes Total Critical Care Time: 35 Attestation: I attest to this time spent taking care of the patient, obtaining history, physical, reviewing labs, imaging, speaking to my attending, speaking to specialist. Discharge Plan Discharge Clinical Impression: Pneumonia, Left against medical advice, Hypoxia Patient Disposition: Left Against Medical Advice Instructions: Against Medical Advice (ED), Pneumonia (ED) Additional Instructions: Take your medications as prescribed. If you were prescribed antibiotics today, it is important that you take your medication to their entirety, do not skip any doses, do not finish them early. Follow-up with your primary care provider this week. Return to the emergency department with new or worsening symptoms. Such as fevers, chills, chest pain, shortness of breath, nausea, vomiting, dizziness, headache, vision changes, lethargy In case of emergency call 911 You are leaving against medical advise risk include , acute respiratory distress, worsening symptoms PLEASE RETURN IF YOU CHANGE YOUR MIND CT/CT chest wo IV con IMPRESSION: Right lower lobe pneumonia. Fleischner guidelines were followed. Prescriptions: New doxycycline hyclate 100 mg capsule 100 mg PO BID 10 Days Qty: 20 0RF azithromycin 250 mg tablet See Rx Instructions .ROUTE .COMPLEX Qty: 6 0RF Rx Instructions: For 250 mg dose pack: take 500 mg today (day 1), then 250 mg for 4 days (days 2-5) albuterol sulfate 90 mcg/actuation aerosol powdr breath activated 2 inh inhalation Q4-6H PRN (Reason: shortness of breath or wheezing) Qty: 1 0RF prednisone 20 mg tablet 40 mg PO DAILY 5 Days Qty: 10 0RF No Action prednisone 20 mg tablet 20 mg PO DAILY 7 Days Qty: 7 0RF lidocaine 5 % adhesive patch,medicated 1 patch topical DAILY Qty: 30 0RF Rx Instructions: leave on most painful area for up to 12 hrs Referrals: Jabier Jaffe MD [Primary Care Provider] - 2 days Stand Alone Forms: Against Medical Advice
[2023-03-26] MEDS: carvediloL 12.5 MG TABLET PO (09:32)
[2023-03-26] MEDS: Acetaminophen 325 MG TABLET 975 MG PO (09:32)
[2023-03-26] MEDS: Losartan Potassium 50 MG TABLET 100 MG PO (09:32)
[2023-03-26] MEDS: Atorvastatin Calcium 80 MG TABLET PO (09:32)
[2023-03-26 09:38] LABS: Lactic Acid 1.2 mmol/L (0.5-2.0)
--- NOTE | 2023-03-26 09:41 | PC.NURSE ---
obtained report from anisha took over pt care at 9am, pt currently a&ox3, pt noted to be hypertensive- pt medicated for htn as well as 5/10 rt chest area pain, pt lungs have rhonchi throughout, labs previously drawn, bc obtained, call white within reach, will continue to monitor
[2023-03-26 10:24] VITALS: O2SAT 88
[2023-03-26 11:16] VITALS: BP 178/71; PULSE 64; RESP 20; TEMP 36.8; O2SAT 92
[2023-03-26] MEDS: methylPREDNISolone Sod Succ 125 MG/2 ML VIAL IVPUSH (11:44)
--- NOTE | 2023-03-26 11:49 | PC.NURSE ---
pt medicated per order and will discharge to home
== END 2023-03-26 11:50 | disposition left against medical advice (07) ==
PROVIDERS: Emergency Medicine Emergency Medical Services; Physician Assistant; Emergency Provider Emergency Medicine; PCP Internal Medicine
DX: J18.9 Pneumonia, unspecified organism (principal); R09.02 Hypoxemia; R07.89 Other chest pain; R07.81 Pleurodynia; R05.9 Cough, unspecified; I25.10 Atherosclerotic heart disease of native coronary artery without angina pectoris; Z79.899 Other long term (current) drug therapy
CPT/HCPCS: 36415; 71046; 71250; 80053; 83605; 84484; 85025; 87040; 93005; 96374; 99284; 99285; J2930

== ENCOUNTER → 2023-03-26 03:53 | Outpatient (BNV) | payer MEDICARE, SELFPAY | PROVIDERS: Emergency Provider Emergency Medicine; PCP Internal Medicine; Visit Provider Internal Medicine Cardiovascular Disease | DX: R07.9 Chest pain, unspecified (principal); I10 Essential (primary) hypertension | CPT/HCPCS: 93010 ==

== ENCOUNTER 2023-03-30 09:19 | Outpatient (REF) | payer MEDICARE, SELFPAY ==
--- NOTE | ~2023-03-30 | XR_ITS ---
EXAMINATION: XR CHEST CLINICAL INFORMATION: Cough. Follow-up pneumonia COMPARISON: Chest radiograph and chest CT 03/26/[address] chest 03/15/2022 TECHNIQUE: 2 views of the chest were obtained. FINDINGS: At the time of the patient's prior chest CT consolidation in the right lower lobe was present which was not as evident on the plain film radiograph. On today's exam, there is continued opacity at the right lung base along with slight increase in opacity at the left lung base consistent with worsening infiltrates, possibly new in the left lower lobe. Heart size normal. No evidence of CHF. No pleural effusions XR/XR chest 2V IMPRESSION: Continued right lower lobe infiltrate with slight increase in left lower lobe infiltrate. Findings are consistent with pneumonia.
== END 2023-03-30 09:20 | disposition home or self-care (01) ==
LOC: HO.HMGCX 09:19
PROVIDERS: PCP Internal Medicine; Visit Provider Internal Medicine
DX: R05.9 Cough, unspecified (principal)
CPT/HCPCS: 71046

== ENCOUNTER 2023-04-06 09:28 | Outpatient (REF) | payer MEDICARE, SELFPAY ==
--- NOTE | ~2023-04-06 | XR_ITS ---
EXAMINATION: XR CHEST CLINICAL INFORMATION: Cough. Follow-up pneumonia. COMPARISON: 03/30/2023 TECHNIQUE: 2 views of the chest were obtained. FINDINGS: Lungs are adequately expanded. The aeration of lower lobes is improved compared to 03/30/2023. There is decreased linear opacity of atelectasis in the right lung base. Note that there were imaging findings suggestive of a right lower lobe pneumonia on chest CT from 03/26/2023. However, no airspace disease is seen in the lower lobe on this follow-up radiographic examination. No pleural effusion. The opacities at the medial bases correspond to the prominent paracardiac fat pads. Cardiac silhouette is normal in size. There is atherosclerotic calcification of the aorta. No acute osseous abnormality. IVC filter is partially included in the cases-xu-cath. XR/XR chest 2V IMPRESSION: * Linear opacity of atelectasis is seen at the right lung base. * The aeration of lower lobes is improved compared to the prior chest radiograph. * There are no findings of pneumonia on this follow-up examination.
== END 2023-04-06 09:29 | disposition home or self-care (01) ==
LOC: HO.HMGCX 09:28
PROVIDERS: PCP Internal Medicine; Visit Provider Internal Medicine
DX: R05.9 Cough, unspecified (principal)
CPT/HCPCS: 71046

== ENCOUNTER 2024-08-29 10:44 | Outpatient (AMB) | payer MEDICARE, SELFPAY ==
--- OUTSIDE RECORDS SUMMARY | 2024-03-08 05:15 | XMS_ITS ---
Author Organization [facility] Address [address] [place] [address] Care Team Providers Care Yoga Coordinator Name Role Phone Alannah GARDNER, Jabier Primary Care Provider Unavailab Toney Rothman Unavailable [phone] Teresa Encounters Encounter Location Date Provider Diagnosis [address] [address] 03/08/2024 Toney Escobedo Plan Of Treatment Next Appt Details Provider Name:Toney Escobedo , 09/27/2024 11:00:00 AM, [address] [place], [address], Progress Notes * Kyle YOUNG FDOB:[birth year] (79 yo M)Acc No.[id number]:03/08/2024 Progress Note Patient: Kyle DICKOSN Provider: Svetlana Escobedo DPM :1945 A ge:78 Y S ex:Male Date:03/08/2024 Address:[address] [place] [address] Pcp:Jabier Jaffe MD Subjective: * Chief Complaints: * [address] Teresa[address] * Medical History: Objective: * Vitals: Assessment: Plan: * Treatment: * Images: * The named appointment provid er may or may not be the originator of this progress note, and it is not deemed complete until electronically signed by the appointment provider. Sign off status: Pending * Provider: Svetlana Escobedo DPM Date: 1 05/09/2023 Generated for Adrien oates/Aruna/Dale on: 0 08/29/2024 12:14 PM EDT
--- NOTE | 2024-08-29 10:47 | A.OFFPC_ITS ---
Vital Signs 08/29/24 10:51 Height 5 ft 6.93 in Weight 224 lb BMI 35.2 BP 142/75 H Respiration 18 Pulse 62 Pulse Source Pulse Oximeter Temp 98.0 F Temp Source Temporal Artery Scan Pulse Oximetry (%) 96 Oxygen Delivery Method Room Air Intake Visit Reasons: establish care Radio Installer Required: No Accompanied by: Self / Same As Patient Allergies lisinopril Allergy (Mild, Verified 08/29/24 11:04) rash Medication List - Last Reconciled 08/29/24 by Nikki Chambers PA-C aspirin 81 mg PO DAILY atorvastatin 80 mg PO DAILY carvedilol 12.5 mg PO BID clopidogrel 75 mg PO DAILY losartan 100 mg PO DAILY Tobacco use date assessed: 08/29/24 Fall risk assessment: No Falls in past year Last assessed Fall Risk: 08/29/24 Dental Screening Dental Screen Date: 08/29/24 Did you have a dental visit in the last 12 months?: No Did you have a dental problem in the last 6 months where you did not have access to dental care?: No Was dental information given to patient?: Patient has dentist (patient has dentures) HPI establish care HPI Details The patient is a 79-year-old male presenting for establishment of care with a new primary care provider. 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 He underwent surgery by Dr. Strickalnd for his wrist, which subsequently froze in position, necessitating extensive hand therapy at [facility]. The pelvic fractures were managed conservatively, but he required a wheelchair initially and later learned to ambulate independently. In May 2019, the patient suffered an inferior wall myocardial infarction and underwent percutaneous coronary intervention with stent placement. He has a history of coronary artery disease and peripheral artery disease, with previous stenting in the right iliac arteries. He is currently on multiple medications including aspirin, atorvastatin, carvedilol, Plavix, and losartan for management of his cardiovascular conditions. The patient has a history of pulmonary embolism, for which he has an inferior vena cava filter in place. He also reports a history of hypertension, which is currently managed with losartan. The patient has a history of smoking, having smoked two packs per day for 20 years before quitting in 1989. He reports urinary incontinence at night, which has improved over the last two weeks, and sleep disturbances characterized by waking up frequently at night. 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 d ue to injury - Family Status: , lives alone, h as a stepson in [place] and another in [place] - Smoking History: Smoked two packs per day for 20 years, quit in 1989 - Exercise: Limited due to previous inju elizabeth, but attempts to stay active [facility] Medical History (Updated 08/29/24 @ 12:05 by Nikki Chambers PA-C) Severe obesity (BMI 35.0-35.9 with comorbidity) Peripheral artery disease Left anterior fascicular block Ex-smoker Coronary artery disease Sleep disturbance Urinary incontinence On aspirin at home Establishing care with new doctor, encounter for Pulmonary embolism HTN (hypertension) High cholesterol Myocardial infarction Surgical History History of colonoscopy H/O shoulder surgery History of heart artery stent Family History Father No problems noted. Mother No problems noted. Social History Housing: House Alcohol intake: current Alcohol intake frequency: does not drink Patient Tobacco Use Status: Former Tobacco user service: No Current occupational status: retired Cognitive needs: No Hearing needs: Yes (b/l hearing aids) Vision needs: Yes (rx glasses) Questionnaire PHQ-9 Over the last 2 weeks, how often have you been bothered by any of the following problems? 1. Little interest or pleasure in doing things: not at all 2. Feeling down, depressed, or hopeless: not at all 3. Trouble falling or staying asleep, or sleeping too much: not at all 4. Feeling tired or having little energy: not at all 5. Poor appetite or overeating: not at all 6. Feeling bad about yourself - or that you are a failure or have let yourself or your family down: not at all 7. Trouble concentrating on things, such as reading the newspaper or watching television: not at all 8. Moving or speaking so slowly that other people could have noticed. Or the opposite - being so fidgety or restless that you have been moving around a lot more than usual: not at all 9. Thoughts that you would be better off or of hurting yourself in some way: not at all Total score: 0 Depression Screening Interpretation: Negative Depression Screening Done: Yes 24193 - PHQ-9 Billing: Yes Source: Developed by Drs. Tao Xie, Faina Marroquin, Luis Theodore and colleagues, with an educational carloz from [employer]. Thrive Questionnaire Date Thrive assessed: 08/29/24 I am a: Patient What is your living situation today?: I have a steady place to live Within the past 12 months, did the food you bought not last and you didn't have the money to get more?: Never true Within the past 12 months, did you worry whether your food would run out before you got money to buy more?: Never true Do you have trouble paying for medicines?: No Do you have trouble getting transportation to medical appointments?: No Do you have trouble paying your heating and electricity bill?: No Do you have trouble taking care of your child, family member or friend?: No Do you have trouble with day-to-day activities such as bathing, preparing meals, shopping, managing finances, etc.?: No Are you currently unemployed and looking for a job?: No Are you interested in more education?: No Please select the resources that you would like help with: None THRIVE Score: 0 AUDIT C Alcohol Use Questionnaire (AUDIT-C) 1. How often do you have a drink containing alcohol?: Never 3. How often do you have six or more drinks on one occasion?: Never Total Score: 0 Score Reviewed/Action Taken: No NELL-7 AMB Questionnaire NELL-7 Date NELL - 7 assessed: 08/29/24 Feeling nervous, anxious, or on edge: 0 = Not at all Not being able to stop or control worryin = Not at all Worrying too much about different things: 0 = Not at all Trouble relaxin = Not at all Being so restless that it is hard to sit still: 0 = Not at all Becoming easily annoyed or irritable: 0 = Not at all Feeling afraid as if something awful might happen: 0 = Not at all Total NELL-7 score (0-4 normal; 5-9 mild; 10-14 moderate; 15-21 severe): 0 Source: Developed by Drs. Tao Xie, Faina Marroquin, Luis Theodore and colleagues, with an educational carloz from [employer]. NELL-7 Assessment Billing NELL-7 Assessment Tool: NELL-7 Assessment 30951 Review of Systems Const Details: - Cardiovascular: Denies chest pain, orthopnea, or syncope - Respiratory: Denies dyspnea, cough, or hemoptysis - Gastrointestinal: Denies abdominal pain, black or bloody stools, or unintentional weight loss - Genitourinary: Reports nocturnal urinary incontinence, denies dysuria or hematuria - Neurological: Reports sleep disturbances, denies headaches or dizziness Physical exam (Primary Care) Vital Signs: Last Vital Signs Temp 98.0 F 08/29/24 10:51 Pulse 62 08/29/24 10:51 Resp 18 08/29/24 10:51 BP 142/75 H 08/29/24 10:51 Pulse Ox 96 08/29/24 10:51 Oxygen Delivery Method Room Air 08/29/24 10:51 Care Plan Goal for BP management: <140/90 at Goal BMI result Body Mass Index 35.2 BMI Assessment/Plan discussion: High BMI High, discussed plan: lifestyle, weight reduction, dietary, physical activity and alcohol moderation Tobacco/Smoking Status: Tobacco use Status Tobacco use date assessed 08/29/24 08/29/24 11:02 Patient Tobacco Use Status Former Tobacco user 08/29/24 11:02 PHQ-9: PHQ-9 Score PHQ-9: Total score 0 08/29/24 11:02 Depression Screening Interpretation: Negative Thrive Assessment: Date of Thrive Assessment Date Thrive assessed 08/29/24 08/29/24 11:02 Const Other: Appearance: Alert. Oriented X3. No acute distress. Head: Normal external exam. Normocephalic. Atraumatic. Eyes: Pupils are equal, round, and reactive to light. Extraocular movements intact. Conjunctiva and sclera normal. Eyelids normal. Ears: External auditory canal normal. Tympanic membranes normal. Throat: Pharynx normal. Uvula midline. Moist mucous membranes. Neck: Normal inspection. Neck supple. Full range of motion. No adenopathy. Thyroid Normal. No meningeal signs. No neck mass noted. Cardiovascular: Normal heart rate and rhythm. Heart sound normal. murmurs noted. Pulses normal throughout. History of left anterior fascicular block on EKG. Status post primary percutaneous coronary intervention with a stent. Peripheral artery disease, coronary artery disease, and post-phlebotic syndrome noted. Respiratory: No respiratory distress. Painless inspiration. Breath sounds normal. No wheezes/rales/rhonchi noted. Chest nontender. No accessory muscle usage noted or decreased air movement noted. History of blood clot in lungs with filter placement. Abdomen: Soft and nontender. Bowel sounds normal in all 4 quadrants. No distention noted. No organomegaly noted. No visible injury noted. Bowel movements light brown, occasionally watery. Back: No costovertebral angle tenderness. Full range of motion noted. Skin: Skin warm and dry. Normal skin color. Normal skin turgor. No rashes/lesions/lacerations noted. History of wearing compression stockings due to blood clots. Extremities: No lower extremity edema. Extremities exhibit normal range of motion. Extremities nontender. History of right hand, wrist, and arm fracture with subsequent therapy. Neuro: Oriented X 3. No motor deficit. No sensory deficit. Reflexes normal. History of learning to use a wheelchair and hand therapy post-accident. Coding Level of Care Code New Pt Level 4 (00950) Complex EM visit Add On G2211 Diagnoses Establishing care with new doctor, encounter for Z HTN (hypertension) I10 History of heart artery stent Z95.5 Myocardial infarction I21.9 High cholesterol E78.00 Pulmonary embolism I26.99 Urinary incontinence R32 Sleep disturbance G47.9 Severe obesity (BMI 35.0-35.9 with comorbidity) E66.01; Z68.35 Additional Codes PHQ-9 - 65277 - PHQ-9 Billing: Yes ([id number]) NELL-7 Assessment Billing - NELL-7 Assessment Tool: NELL-7 Assessment 96041 ([id number]) Assessment & Plan Assessment & Plan (1) Establishing care with new doctor, encounter for: Comment: Prior primary care was Dr. Jaffe Code(s): Z76.89 - Persons encountering health services in other specified circumstances Category: Medical (2) HTN (hypertension): Code(s): I10 - Essential (primary) hypertension Category: Medical Plan: The patient has a history of hypertension, currently managed with losartan. Blood pressure was noted to be elevated during the visit, possibly due to recent caffeine intake. Condition is chronic and stable will continue to monitor. (3) History of heart artery stent: Code(s): Z95.5 - Presence of coronary angioplasty implant and graft Category: Surgical Plan: The patient experienced an inferior wall myocardial infarction in May 2019, for which he underwent percutaneous coronary intervention with stent placement. He is currently on aspirin, atorvastatin, carvedilol, Plavix, and losartan for management of his cardiovascular conditions. Follow-up with a cylinder sander operator is recommended to evaluate the necessity of continuing Plavix, as it may no longer be required. (4) Myocardial infarction: Comment: History of inferior wall myocardial infarction 05/30/2019 status post primary percutaneous coronary intervention with a 3.5 x 26 mm resolute yaron with preserved left ventricular function, quality of life clarification status post right common iliac and external iliac stenting 11/07/2019. Patient's cylinder sander operator in [address] Chisholm Code(s): I21.9 - Acute myocardial infarction, unspecified Category: Medical Plan: The patient experienced an inferior wall myocardial infarction in May 2019, for which he underwent percutaneous coronary intervention with stent placement. He is currently on aspirin, atorvastatin, carvedilol, Plavix, and losartan for management of his cardiovascular conditions. Follow-up with a cylinder sander operator is recommended to evaluate the necessity of continuing Plavix, as it may no longer be required. (5) High cholesterol: Code(s): E78.00 - Pure hypercholesterolemia, unspecified Category: Medical Plan: Patient to continue atorvastatin 80 mg daily. Condition is chronic and stable continue to monitor. (6) Pulmonary embolism: Comment: On aspirin and Plavix since May of 2019 Code(s): I26.99 - Other pulmonary embolism without acute cor pulmonale Category: Medical Plan: Patient to continue aspirin, Plavix. Condition is chronic and stable continue to monitor. (7) Urinary incontinence: Code(s): R32 - Unspecified urinary incontinence Category: Medical Plan: The patient reports nocturnal urinary incontinence, which has improved over the last two weeks. He has not consulted a urologist but may consider it if symptoms worsen. Condition is chronic and stable will continue to monitor. (8) Sleep disturbance: Code(s): G47.9 - Sleep disorder, unspecified Category: Medical Plan: The patient reports sleep disturbances characterized by frequent awakenings at night. He does not wish to take medication for this issue at present. Condition is chronic and stable will continue to monitor. (9) Severe obesity (BMI 35.0-35.9 with comorbidity): Code(s): E66.01 - Morbid (severe) obesity due to excess calories; Z68.35 - Body mass index [BMI] 35.0-35.9, adult Category: Medical Plan: Patient to improve diet and exercise regimen. Condition is chronic and stable continue to monitor. Plan Plan Patient was informed and verbally consented to the use of an ambient scribe for clinic note documentation during this visit. 1. Inferior Wall Myocardial Infarction The patient experienced an inferior wall myocardial infarction in May 2019, for which he underwent percutaneous coronary intervention with stent placement. He is currently on aspirin, atorvastatin, carvedilol, Plavix, and losartan for management of his cardiovascular conditions. Follow-up with a cylinder sander operator is recommended to evaluate the necessity of continuing Plavix, as it may no longer be required. 2. Pulmonary Embolism The patient has a history of pulmonary embolism and has an inferior vena cava filter in place. He reports no current symptoms related to this condition. 3. Hypertension The patient has a history of hypertension, currently managed with losartan. Blood pressure was noted to be elevated during the visit, possibly due to recent caffeine intake. 4. Urinary Incontinence The patient reports nocturnal urinary incontinence, which has improved over the last two weeks. He has not consulted a urologist but may consider it if symptoms worsen. 5. Sleep Disturbance The patient reports sleep disturbances characterized by frequent awakenings at night. He does not wish to take medication for this issue at present. During the visit, we discussed the patient's history of myocardial infarction and the current medication regimen, including the potential discontinuation of Plavix after cardiology consultation. We also reviewed his history of pulmonary embolism and hypertension, noting the need for continued monitoring of blood pressure levels. The patient was advised to consider seeing a urologist if urinary incontinence worsens and to maintain current lifestyle modifications for sleep disturbances. Orders: Referrals Cardiology Referral E78.00 - Pure hypercholesterolemia, unspecified, I10 - Essential (primary) hypertension, Z79.82 - skilled nursing (current) use of aspirin, Z95.5 - Presence of coronary angioplasty implant and graft Medications: New atorvastatin 80 mg PO DAILY 90 tabs 1RF clopidogrel 75 mg PO DAILY 90 tabs 1RF Discontinued prednisone Discontinued Reason: Patient no longer taking 20 mg PO DAILY 7 days 7 tabs 0RF lidocaine 5% leave on most painful area for up to 12 hrs Discontinued Reason: Patient no longer taking 1 patch topical DAILY 30 ea 0RF doxycycline hyclate Discontinued Reason: Patient no longer taking 100 mg PO BID 10 days 20 caps 0RF albuterol sulfate 90 mcg/actuation Discontinued Reason: Patient no longer taking 2 inhalations inhalation Q4- 6H PRN 1 ea 0RF shortness of breath or wheezing azithromycin Discontinued Reason: Patient no longer taking For 250 mg dose pack: take 500 mg today (day 1), then 250 mg for 4 days (days 2-5) 6 tabs 0RF prednisone Discontinued Reason: Patient no longer taking 40 mg (2 x 20 mg) PO DAILY 5 days 10 tabs 0RF Patient Instructions: - Follow up with a cylinder sander operator to discuss the necessity of continuing Plavix. - Monitor blood pressure regularly and report any significant changes. - Consider consulting a urologist if urinary incontinence worsens. - Maintain current lifestyle modifications to improve sleep quality.
[2024-08-29 10:51] VITALS: BP 142/75; PULSE 62; RESP 18; TEMP 36.7; O2SAT 96; BMI 35.2
== END 2024-08-29 11:38 | disposition home or self-care (01) ==
LOC: HO.HMCSH 10:44
PROVIDERS: PCP Internal Medicine; Visit Provider Physician Assistant Medical
DX: I25.2 Old myocardial infarction (principal); I26.99 Other pulmonary embolism without acute cor pulmonale; E66.01 Morbid (severe) obesity due to excess calories; Z68.35 Body mass index [BMI] 35.0-35.9, adult; Z76.89 Persons encountering health services in other specified circumstances; I10 Essential (primary) hypertension; G47.9 Sleep disorder, unspecified; Z95.5 Presence of coronary angioplasty implant and graft; E78.00 Pure hypercholesterolemia, unspecified; R32 Unspecified urinary incontinence

== ENCOUNTER → 2024-08-29 10:44 | Outpatient (BNVA) | payer MEDICARE, SELFPAY | PROVIDERS: PCP Internal Medicine; Visit Provider Physician Assistant Medical | DX: I10 Essential (primary) hypertension (principal); I25.2 Old myocardial infarction; R32 Unspecified urinary incontinence; E78.00 Pure hypercholesterolemia, unspecified; I26.99 Other pulmonary embolism without acute cor pulmonale; G47.9 Sleep disorder, unspecified; E66.01 Morbid (severe) obesity due to excess calories; Z68.35 Body mass index [BMI] 35.0-35.9, adult; Z86.711 Personal history of pulmonary embolism; Z95.5 Presence of coronary angioplasty implant and graft; Z87.891 Personal history of nicotine dependence | CPT/HCPCS: 96127; 99202 ==